=== PATIENT | male | born 1965 | race Caucasian/White ===

== ENCOUNTER 2016-11-12 19:34 | Emergency (ER) | payer OTHER ==
[2016-11-12] MEDS ORDERED: Ketorolac Tromethamine 30 MG/ML VIAL ONE (19:56)
[2016-11-12] MEDS ORDERED: Acetaminophen 500 MG TAB ONE (19:56)
[2016-11-12] MEDS ORDERED: Sodium Chloride 0.9% 1,000 ML ONE (19:58)
[2016-11-12] MEDS ORDERED: Ondansetron HCl/PF 4 MG/2 ML Vial ONE (20:01)
[2016-11-12 20:14] LABS: #Basophils 0.1 thou/uL (0.0-0.2); #Eosinphils 0.3 thou/uL (0.0-0.7); #Monocytes 0.8 thou/uL (0.11-0.59); #Neutrophils 5.4 thou/uL (1.40-6.50); %Basophils 1.2 % (0.0-1.0); %Eosinophils 3.2 % (0.0-10.0); %Lymphocytes 28.7 % (21.0-51.0); %Monocytes 8.4 % (0.0-10.0); Hematocrit 48.2 % (42.0-52.0); Macrocytosis MODERATE=16-30 cells (100X) (0-5/hpf); Mean Platelet Volume 6.9 fL (7.4-10.4); Red Blood Cell (RBC) Count 4.32 mill/uL (4.70-6.10); White Blood Cell (WBC) Count 9.2 thou/uL (4.8-10.8)
[2016-11-12 20:22] LABS: Anion Gap 14 mmol/L (10-20); BUN (Urea Nitrogen) 9 mg/dL (8.4-25.7); Calc. Creatinine Clearance 0 mL/min (70-130); Calcium 9.3 mg/dL (7.8-10.44); Carbon Dioxide 25 mmol/L (22-29); Chloride 107 mmol/L (98-107); Estimated GFR-MDRD 78
[2016-11-12] MEDS ORDERED: cefTRIAXone\\ROCEPHIN 1 GM VIAL ONE (20:46)
[2016-11-12] MEDS ORDERED: Sodium Chloride 0.9% 0 ML ONE (20:47)
[2016-11-12] MEDS ORDERED: Sodium Chloride 0.9% 100 ML ONE (20:47)
--- NOTE | 2016-11-12 22:12 | ERRECORD ---
[facility] EMERGENCY RECORD HPI FLANK PAIN (19:56 RWAG) CHIEF COMPLAINT: Patient presents for evaluation of flank pain, on the right. HISTORIAN: History provided by patient. LOCATION MALE: Symptoms are localized, most severe in the right flank, Radiation, to the groin. QUALITY: Unable to describe the quality of the pain. SEVERITY: Maximum severity of symptoms mild, Currently symptoms are mild, Maximum severity of pain rated as 10/10, Current severity of pain rated as 10/10, pt calm, NAD. TIME COURSE: Sudden onset of symptoms, 2, hours prior to arrival, There has been no change in the patient's symptoms over time. ASSOCIATED WITH MALE: Associated with fever, Measured maximum temperature 100 to 100.4 degrees, taken orally. EXACERBATED BY: Patient's condition exacerbated by nothing. RELIEVED BY: Patient's condition relieved by nothing. ROS (19:57 RWAG) CONSTITUTIONAL: Negative constitutional review of systems. EYES: Negative eye review of systems. ENT: Negative ears, nose, throat review of systems. CARDIOVASCULAR: Negative cardiovascular review of systems. RESPIRATORY: Negative respiratory review of systems. GI: Negative gastrointestinal review of systems. GENITOURINARY MALE: Negative genitourinary review of systems. MUSCULOSKELETAL: Negative musculoskeletal review of systems. SKIN: Negative skin review of systems. NEUROLOGIC: Negative neurologic review of systems. ENDOCRINE: Negative endocrine review of systems. HEMO/LYMPHATIC: Normal hematologic/lymphatic system review. ALLERGIC/IMMUNOLOGIC: Normal allergy/immunologic system review. PSYCHIATRIC: Negative psychiatric review of systems. NOTES: All systems reviewed, negative except as described above. PAST MEDICAL HISTORY (19:44 BHAS) MEDICAL HISTORY: No past medical history, Flu vaccine not up to date, Tetanus not up to date, Pneumococcal vaccine not up to date. MALE SURGICAL HISTORY: Dental Sx, Surgical history of hernia repair, Date of surgery 1997. PSYCHIATRIC HISTORY: No previous psychiatric history. SOCIAL HISTORY: Patient denies alcohol use, Patient denies drug use, Patient currently uses tobacco, smokes cigarettes, daily. KNOWN ALLERGIES No Known Drug Allergies &a-1R&a+25V*p+0X*[id number]*c202B*c15G*c2P*p-0X&a-25V&a+1R Name: Mayo White : 1965 M51 MedRec: [id number] AcctNum: [id number] Prepared: Sat Nov 12, 2016 22:41 by Interface Page 1 of 3 pMD [facility] EMERGENCY RECORD CURRENT MEDICATIONS (20:10 BHAS) None VITAL SIGNS VITAL SIGNS: BP: 191/92, Pulse: 69, Resp: 18 (Non-Labored), Temp: 100.4 (Oral), Pain: 10 (Sharp), O2 sat: 98 on Room Air, Time: 11/12/2016 19:39. (19:39 BHAS) BP: 132/89, Pulse: 69, Resp: 18 (Non-Labored), Pain: 0, O2 sat: 96 on Room Air, Time: 11/12/2016 20:18. (20:18 BHAS) Temp: 99.1 (Oral), Time: 11/12/2016 20:34. (20:34 BHAS) BP: 140/84, Pulse: 60, Resp: 18 (Non-Labored), O2 sat: 98 on Room Air, Time: 11/12/2016 21:30. (21:30 BHAS) PHYSICAL EXAM (19:58 RWAG) CONSTITUTIONAL: Patient febrile, temperature of 100.4. HEAD: Head exam normal. EYES: Eye exam normal. ENT: ENT exam normal. NECK: Neck exam normal. RESPIRATORY CHEST: Respiratory and chest exam normal. CARDIOVASCULAR: Cardiovascular assessment normal. ABDOMEN MALE: Abdominal exam normal. BACK: Back exam normal. UPPER EXTREMITY: Upper extremity exam normal. LOWER EXTREMITY: Lower extremity exam normal. NEURO: Neuro exam normal. SKIN: Skin exam normal. LYMPHATIC: Lymphatic exam normal. PSYCHIATRIC: Psychiatric exam normal. MEDICATION ADMINISTRATION SUMMARY Drug Name: cefTRIAXone injection, Dose Ordered: 1 g, Route: IV Piggy Back, Status: Given, Time: 20:55 11/12/2016, Drug Name: Normal Saline, Dose Ordered: 1 L, Route: IV Fluid Infusion, Status: Given, Time: 20:05 11/12/2016, Drug Name: Dilaudid (PF), Dose Ordered: 1 mg, Route: IV Push, Status: Given, Time: 20:05 11/12/2016, Drug Name: ondansetron HCl intravenous, Dose Ordered: 8 mg, Route: IV Push, Status: Given, Time: 20:05 11/12/2016, Drug Name: ketorolac injection, Dose Ordered: 30 mg, Route: IV Push, Status: Given, Time: 20:04 11/12/2016, Drug Name: Tylenol Extra Strength, Dose Ordered: 1 g, Route: Oral, Status: Given, Time: 20:04 11/12/2016, Detailed record available in Medication Service section. PROBLEM LIST No recorded problems &a-1R&a+25V*p+0X*[id number]*c202B*c15G*c2P*p-0X&a-25V&a+1R Name: Mayo White : 1965 M51 MedRec: [id number] AcctNum: [id number] Prepared: Sat Nov 12, 2016 22:41 by Interface Page 2 of 3 pMD [facility] EMERGENCY RECORD DIAGNOSIS (21:36 RW) FINAL: PRIMARY: Cholelithiasis, ADDITIONAL: biliary colic. PRESCRIPTION (21:35 RW) Ultram: TABLET : 50 mg : ORAL : Quantity: 2 Unit: tab(s) Route: ORAL Schedule: every 6 hours PRN Dispense: 20 Unit: tab(s) May substitute. Refills: No Refills . NOTES: No Refills. Zofran ODT: TABLET,DISINTEGRATING : 8 mg : ORAL : Quantity: 1 Unit: tab(s) Route: ORAL Schedule: every 8 hours PRN Dispense: 12 Unit: tab(s) May substitute. Refills: No Refills . NOTES: No Refills. DISPOSITION PATIENT: Disposition Type: Discharge, Disposition: *Discharge Home, Disposition Transport: Car, Condition: Improved. (21:36 [facility]) Patient left the department. (22:04 [facility]) Wright: [facility]=[place] Hurt, Favio [facility]=MD Wong, Po &a-1R&a+25V*p+0X*[id number]*c202B*c15G*c2P*p-0X&a-25V&a+1R Name: Mayo White : 1965 M51 MedRec: [id number] AcctNum: [id number] Prepared: Sat Nov 12, 2016 22:41 by Interface Page 3 of 3 pMD MTDD
--- NOTE | 2016-11-12 22:19 | PICIS ---
[facility] EMERGENCY RECORD TRIAGE (19:41 BHAS) TRIAGE NOTES: Pt states lower right abd pain with right flank pain x 2 hours. (19:41 BHAS) PATIENT: NAME: Mayo White, AGE: 51, GENDER: male, : Sun 1965, TIME OF GREET: Sat Nov 12, 2016 19:35, PREFERRED LANGUAGE: [place] Citizen, ETHNICITY: Not or , ECODE BILLING MAP: [facility] ER, SSN: [id number], Zip Code: [address], KG WEIGHT: 79.38, PHONE: , , , PERSON ID: [id number], PCP: MD Munoz Katherine. (19:41 BHAS) COMPLAINT: LOWER RT ABD PAIN; BACK PAIN. (19:41 BHAS) ADMISSION: URGENCY: 3 Urgent, ADMISSION SOURCE: Home, TRANSPORT: Walk-in, BED: ER -03. (19:41 BHAS) ASSESSMENT: Assessment: Pt c/o lower right abd pain with right lower back pain x 2 hours., Symptoms began 11/12/2016 19:44. (19:44 BHAS) PAIN: Patient complains of pain described as, aching, Location abd, back. (19:44 BHAS) TRIAGE SCREENING: Patient denies suicidal ideation, Patient denies presence of domestic violence. (19:44 BHAS) PROVIDERS: TRIAGE NURSE: Favio Hurt RN. (19:41 BHAS) VITAL SIGNS: BP 191/92, Pulse 69, Resp 18, (Non-Labored), Temp 100.4, (Oral), Pain 10, (Sharp), O2 Sat 98, on Room Air, Time 11/12/2016 19:39. (19:39 BHAS) KNOWN ALLERGIES No Known Drug Allergies CURRENT MEDICATIONS (20:10 BHAS) None VITAL SIGNS VITAL SIGNS: BP: 191/92, Pulse: 69, Resp: 18 (Non-Labored), Temp: 100.4 (Oral), Pain: 10 (Sharp), O2 sat: 98 on Room Air, Time: 11/12/2016 19:39. (19:39 BHAS) BP: 132/89, Pulse: 69, Resp: 18 (Non-Labored), Pain: 0, O2 sat: 96 on Room Air, Time: 11/12/2016 20:18. (20:18 BHAS) Temp: 99.1 (Oral), Time: 11/12/2016 20:34. (20:34 BHAS) BP: 140/84, Pulse: 60, Resp: 18 (Non-Labored), O2 sat: 98 on Room Air, Time: 11/12/2016 21:30. 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 Pt denies N/V/D. Pt denies hx of kidney stones. NAD &a-1R&a+25V*p+0X*f2171B*c202B*c15G*c2P*p-0X&a-25V&a+1R Name: Mayo White : 1965 M51 MedRec: [id number] AcctNum: [id number] Prepared: Sat Nov 12, 2016 22:48 by Interface Page 1 of 10 pMD [facility] EMERGENCY RECORD noted. PAIN: sharp pain, to the right lower quadrant, Onset of pain 11/12/2016 20:12, on a scale 0-10 patient rates pain as 10. ABDOMEN: Abdomen assessment findings include abdomen symmetrical, Abdomen soft, tender, to the right lower quadrant, Bowel sound normal, no associated nausea, no associated vomiting, no associated diarrhea, no associated constipation. GENITOURINARY MALE: Male genitourinary assessment findings include external genitalia normal. SAFETY: Side rails up, Cart/Stretcher in lowest position, Family at bedside, Call light within reach, Hospital ID band on. 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 BELONGINGS: Belongings and valuables with patient upon arrival to the Emergency Department include:, Belongings remain with patient, Valuables remain with patient. SAFETY: Side rails up, Cart/Stretcher in lowest position, Family at bedside, Call light within reach, Hospital ID band on. NURSING PROCEDURE: IV PATIENT IDENITIFIER: Patient actively involved in identification process, Patient's identity verified by patient stating name, Patient's identity verified by patient stating date. (19:50 BHAS) Patient actively involved in identification process, Patient's identity verified by patient stating name, Patient's identity verified by hospital ID bracelet. (22:00 BHAS) IV SITE 1: IV established, to the right antecubital, using a 20 gauge catheter, in one attempt, Saline lock established, Labs drawn at time of placement, labeled in the presence of the patient and sent to lab. (19:50 BHAS) FOLLOW-UP SITE 1: After procedure, sterile dressing applied. (19:50 BHAS) After procedure, 2x2 dressing applied, IV discontinued, due to patient being discharged, catheter intact. (22:00 BHAS) SAFETY: Side rails up, Cart/Stretcher in lowest position, Family at bedside, Call light within reach, Hospital ID band on. (19:50 BHAS) &a-1R&a+25V*p+0X*s9625J*c202B*c15G*c2P*p-0X&a-25V&a+1R Name: Mayo White : 1965 M51 MedRec: [id number] AcctNum: [id number] Prepared: Sat Nov 12, 2016 22:48 by Interface Page 2 of 10 pMD [facility] EMERGENCY RECORD NURSING PROCEDURE: NURSE NOTES NURSES NOTES: Notes: Pt to CT via cart at this time . (20:10 BHAS) Notes: Dr. Back stated no need for blood cultures prior to abx administration. (20:50 BHAS) Notes: Pt attempts to use restroom for UA; unable to at this time. (21:00 BHAS) Notes: Pt to be discharged at this time; awaiting ride from ER due to pt receiving pain medications. (21:40 BHAS) NURSING PROCEDURE: TRANSPORT TO TESTS (19:57 CCRI) TRANSPORT TO TESTS: Patient transported to CT scan, via wheelchair, Accompanied by x-ray it desktop support technician, Patient arrived in location at 20:08, Patient departed location at 20:16. ORDER DETAILS Order Name: Basic Metabolic Panel, Status: Active, Time: 19:51 11/12/2016, User: NORM, - Ordered for: MD Back Richard, - Entered by: MD Back Richard - Sat Nov 12, 2016 19:51, - Quantity: 1, Order Name: CBC with Differential, Status: Active, Time: 19:51 11/12/2016, User: NORM, - Ordered for: MD Back Richard, - Entered by: MD Back Richard - Sat Nov 12, 2016 19:51, - Quantity: 1, Order Name: CT Stone Protocol, Status: Active, Time: 19:51 11/12/2016, User: NORM, - Ordered for: MD Back Richard, - Entered by: MD Back Richard - Sat Nov 12, 2016 19:51, - Quantity: 1, Order Name: Culture, Urine, Status: Active, Time: 19:52 11/12/2016, User: NORM, - Ordered for: MD Back Richard, - Entered by: MD Back Richard - Sat Nov 12, 2016 19:52, - Quantity: 1, Order Name: SALINE LOCK, Status: Done, Time: 20:02 11/12/2016, User: GILDARDO, - Ordered for: MD Back Richard, - Entered by: MD Back Richard - Sat Nov 12, 2016 19:51, - Quantity: 1, Order Name: Urinalysis with Microscopic, Status: Canceled, Time: 22:08 11/12/2016, User: System, - Ordered for: MD Back Richard, - Entered by: MD Back Richard - Sat Nov 12, 2016 19:51, - Quantity: 1. MEDICATION ADMINISTRATION SUMMARY &a-1R&a+25V*p+0X*j0967X*c202B*c15G*c2P*p-0X&a-25V&a+1R Name: Mayo White : 1965 M51 MedRec: [id number] AcctNum: [id number] Prepared: Sat Nov 12, 2016 22:48 by Interface Page 3 of 10 pMD [facility] EMERGENCY RECORD Drug Name: cefTRIAXone injection, Dose Ordered: 1 g, Route: IV Piggy Back, Status: Given, Time: 20:55 11/12/2016, Drug Name: Normal Saline, Dose Ordered: 1 L, Route: IV Fluid Infusion, Status: Given, Time: 20:05 11/12/2016, Drug Name: Dilaudid (PF), Dose Ordered: 1 mg, Route: IV Push, Status: Given, Time: 20:05 11/12/2016, Drug Name: ondansetron HCl intravenous, Dose Ordered: 8 mg, Route: IV Push, Status: Given, Time: 20:05 11/12/2016, Drug Name: ketorolac injection, Dose Ordered: 30 mg, Route: IV Push, Status: Given, Time: 20:04 11/12/2016, Drug Name: Tylenol Extra Strength, Dose Ordered: 1 g, Route: Oral, Status: Given, Time: 20:04 11/12/2016, Detailed record available in Medication Service section. MEDICATION SERVICE cefTRIAXone injection: Order: cefTRIAXone injection (ceftriaxone sodium) - Dose: 1 g : IV Piggy Back Schedule: Now Ordered by: Po Back MD Entered by: Po Back MD Sat Nov 12, 2016 20:30 , Acknowledged by: Favio Hurt RN Sat Nov 12, 2016 20:35 Documented as given by: Favio Hurt RN Sat Nov 12, 2016 20:55 Patient, Medication, Dose, Route and Time verified prior to administration. Verbal order read back and verified, Amount given: 1 gram, IV SITE #1 IVPB or drip, initial infusion, Premixed, via pump tubing, on an IV pump, Verified Blood Culture collection prior to Antibiotic administration, Catheter placement confirmed via flush prior to administration, IV site without signs or symptoms of infiltration during medication administration, No swelling during administration, No drainage during administration, IV flushed after administration, Correct patient, time, route, dose and medication confirmed prior to administration, Patient advised of actions and side-effects prior to administration, Allergies confirmed and medications reviewed prior to administration, Patient tolerated procedure well, Patient in position of comfort, Side rails up, Cart in lowest position, Family at bedside. : Follow Up : No signs or symptoms of allergic reaction noted, _IV SITE #1:_, Medication infusion discontinued, on Sat Nov 12, 2016 21:40, 45 minutes, ., Total amount infused: 100ml, IV Line flushed after administration, Advised not to ambulate without assistance, Patient in position of comfort, Side rails up, Cart in lowest position, Family at bedside. (21:40 [facility]) Dilaudid (PF): Order: Dilaudid (PF) (hydromorphone HCl/preservative free) - Dose: 1 mg : IV Push Schedule: Now Ordered by: Po Back MD Entered by: Po Back MD Sat Nov 12, 2016 19:54 , Acknowledged by: Favio Hurt RN Sat Nov 12, 2016 19:55 &a-1R&a+25V*p+0X*s9772Y*c202B*c15G*c2P*p-0X&a-25V&a+1R Name: Mayo White : 1965 M51 MedRec: [id number] AcctNum: [id number] Prepared: Sat Nov 12, 2016 22:48 by Interface Page 4 of 10 pMD [facility] EMERGENCY RECORD Documented as given by: Favio Hurt RN Sat Nov 12, 2016 20:05 Patient, Medication, Dose, Route and Time verified prior to administration. Verbal order read back and verified, Amount given: 1mg, IV SITE #1 IVP, initial medication, Slowly, Awake and alert- acceptable, Connections checked prior to administration, Line traced prior to administration, Catheter placement confirmed via flush prior to administration, IV site without signs or symptoms of infiltration during medication administration, No swelling during administration, No drainage during administration, IV flushed after administration, Correct patient, time, route, dose and medication confirmed prior to administration, Patient advised of actions and side-effects prior to administration, Allergies confirmed and medications reviewed prior to administration, Patient tolerated procedure well, Patient in position of comfort, Side rails up, Cart in lowest position, Family at bedside. ketorolac injection: Order: ketorolac injection (ketorolac tromethamine) - Dose: 30 mg : IV Push Ordered by: Po Back MD Entered by: Po Back MD Sat Nov 12, 2016 19:53 , Acknowledged by: Favio Hurt RN Sat Nov 12, 2016 19:55 Documented as given by: Favio Hurt RN Sat Nov 12, 2016 20:04 Patient, Medication, Dose, Route and Time verified prior to administration. Verbal order read back and verified, Amount given: 30mg, IV SITE #1 IVP, initial medication, Slowly, Connections checked prior to administration, Line traced prior to administration, Catheter placement confirmed via flush prior to administration, IV site without signs or symptoms of infiltration during medication administration, No swelling during administration, No drainage during administration, IV flushed after administration, Correct patient, time, route, dose and medication confirmed prior to administration, Patient advised of actions and side-effects prior to administration, Allergies confirmed and medications reviewed prior to administration, Patient in position of comfort, Side rails up, Cart in lowest position, Family at bedside. Normal Saline: Order: Normal Saline (0.9 % sodium chloride) - Dose: 1 L : IV Fluid Infusion Schedule: Now Ordered by: Po Back MD Entered by: Po Back MD Sat Nov 12, 2016 19:59 , Acknowledged by: Fatoumata Castro RN Sat Nov 12, 2016 20:00 Documented as given by: Favio Hurt RN Sat Nov 12, 2016 20:05 Patient, Medication, Dose, Route and Time verified prior to administration. Verbal order read back and verified, Amount given: 1000mg, IV SITE #1 IV fluids established for hydration, IV SITE #1 1st bag hung, via primary tubing, via gravity tubing, Connections checked prior to administration, Line traced prior to administration, Catheter placement confirmed via flush prior to administration, IV site &a-1R&a+25V*p+0X*m4383O*c202B*c15G*c2P*p-0X&a-25V&a+1R Name: Mayo White : 1965 M51 MedRec: [id number] AcctNum: [id number] Prepared: Sat Nov 12, 2016 22:48 by Interface Page 5 of 10 pMD [facility] EMERGENCY RECORD without signs or symptoms of infiltration during medication administration, No swelling during administration, No drainage during administration, IV flushed after administration, Correct patient, time, route, dose and medication confirmed prior to administration, Patient advised of actions and side-effects prior to administration, Allergies confirmed and medications reviewed prior to administration, Patient tolerated procedure well, Patient in position of comfort, Side rails up, Cart in lowest position, Family at bedside. : Follow Up : No signs or symptoms of allergic reaction noted, _IV SITE #1:_, IV fluid infusion discontinued, on Sat Nov 12, 2016 21:45, Total fluid hydration time IV site 1 1 hour, 40 minutes, ., Total amount infused: 1000ml, IV Line flushed after administration, Advised not to ambulate without assistance, Patient in position of comfort, Side rails up, Cart in lowest position, Family at bedside. (21:45 [facility]) ondansetron HCl intravenous: Order: ondansetron HCl intravenous (ondansetron HCl) - Dose: 8 mg : IV Push Schedule: Now Ordered by: Po Back MD Entered by: Po Back MD Sat Nov 12, 2016 19:55 , Acknowledged by: Favio Hurt RN Sat Nov 12, 2016 19:55 Documented as given by: Favio Hurt RN Sat Nov 12, 2016 20:05 Patient, Medication, Dose, Route and Time verified prior to administration. Verbal order read back and verified, Amount given: 8mg, IV SITE #1 IVP, initial medication, Slowly, Connections checked prior to administration, Line traced prior to administration, Catheter placement confirmed via flush prior to administration, IV site without signs or symptoms of infiltration during medication administration, No swelling during administration, No drainage during administration, IV flushed after administration, Correct patient, time, route, dose and medication confirmed prior to administration, Patient advised of actions and side-effects prior to administration, Allergies confirmed and medications reviewed prior to administration, Patient tolerated procedure well, Patient in position of comfort, Side rails up, Cart in lowest position, Family at bedside. Tylenol Extra Strength: Order: Tylenol Extra Strength (acetaminophen) - Dose: 1 g : Oral Schedule: Now Ordered by: Po Back MD Entered by: Po Back MD Sat Nov 12, 2016 19:53 , Acknowledged by: Favio Hurt RN Sat Nov 12, 2016 19:55 Documented as given by: Favio Hurt RN Sat Nov 12, 2016 20:04 Patient, Medication, Dose, Route and Time verified prior to administration. Verbal order read back and verified, Amount given: 1 gram, Site: Medication administered P.O., Correct patient, time, route, dose and medication confirmed prior to administration, Patient advised of actions and side-effects prior to administration, Allergies confirmed and medications reviewed prior to administration, Patient tolerated &a-1R&a+25V*p+0X*d3483O*c202B*c15G*c2P*p-0X&a-25V&a+1R Name: Mayo White : 1965 M51 MedRec: [id number] AcctNum: [id number] Prepared: Sat Nov 12, 2016 22:48 by Interface Page 6 of 10 pMD [facility] EMERGENCY RECORD procedure well, Patient in position of comfort, Side rails up, Cart in lowest position, Family at bedside. HPI FLANK PAIN (19:56 RWAG) CHIEF COMPLAINT: Patient presents for evaluation of flank pain, on the right. HISTORIAN: History provided by patient. LOCATION MALE: Symptoms are localized, most severe in the right flank, Radiation, to the groin. QUALITY: Unable to describe the quality of the pain. SEVERITY: Maximum severity of symptoms mild, Currently symptoms are mild, Maximum severity of pain rated as 10/10, Current severity of pain rated as 10/10, pt calm, NAD. TIME COURSE: Sudden onset of symptoms, 2, hours prior to arrival, There has been no change in the patient's symptoms over time. ASSOCIATED WITH MALE: Associated with fever, Measured maximum temperature 100 to 100.4 degrees, taken orally. EXACERBATED BY: Patient's condition exacerbated by nothing. RELIEVED BY: Patient's condition relieved by nothing. ROS (19:57 RWAG) CONSTITUTIONAL: Negative constitutional review of systems. EYES: Negative eye review of systems. ENT: Negative ears, nose, throat review of systems. CARDIOVASCULAR: Negative cardiovascular review of systems. RESPIRATORY: Negative respiratory review of systems. GI: Negative gastrointestinal review of systems. GENITOURINARY MALE: Negative genitourinary review of systems. MUSCULOSKELETAL: Negative musculoskeletal review of systems. SKIN: Negative skin review of systems. NEUROLOGIC: Negative neurologic review of systems. ENDOCRINE: Negative endocrine review of systems. HEMO/LYMPHATIC: Normal hematologic/lymphatic system review. ALLERGIC/IMMUNOLOGIC: Normal allergy/immunologic system review. PSYCHIATRIC: Negative psychiatric review of systems. NOTES: All systems reviewed, negative except as described above. PAST MEDICAL HISTORY (19:44 BHAS) MEDICAL HISTORY: No past medical history, Flu vaccine not up to date, Tetanus not up to date, Pneumococcal vaccine not up to date. MALE SURGICAL HISTORY: Dental Sx, Surgical history of hernia repair, Date of surgery 1997. PSYCHIATRIC HISTORY: No previous psychiatric history. SOCIAL HISTORY: Patient denies alcohol use, Patient denies drug use, Patient currently uses tobacco, smokes cigarettes, daily. &a-1R&a+25V*p+0X*e6528M*c202B*c15G*c2P*p-0X&a-25V&a+1R Name: Mayo White : 1965 M51 MedRec: [id number] AcctNum: [id number] Prepared: Sat Nov 12, 2016 22:48 by Interface Page 7 of 10 pMD [facility] EMERGENCY RECORD PHYSICAL EXAM (19:58 RWAG) CONSTITUTIONAL: Patient febrile, temperature of 100.4. HEAD: Head exam normal. EYES: Eye exam normal. ENT: ENT exam normal. NECK: Neck exam normal. RESPIRATORY CHEST: Respiratory and chest exam normal. CARDIOVASCULAR: Cardiovascular assessment normal. ABDOMEN MALE: Abdominal exam normal. BACK: Back exam normal. UPPER EXTREMITY: Upper extremity exam normal. LOWER EXTREMITY: Lower extremity exam normal. NEURO: Neuro exam normal. SKIN: Skin exam normal. LYMPHATIC: Lymphatic exam normal. PSYCHIATRIC: Psychiatric exam normal. EVENTS TRANSFER: Triage to Emergency Emergency Room -03. (Sat Nov 12, 2016 19:41 BHAS) Removed from Emergency Emergency Room -03. (22:04 BHAS) PROBLEM LIST No recorded problems DIAGNOSIS (21:36 RWAG) FINAL: PRIMARY: Cholelithiasis, ADDITIONAL: biliary colic. DISPOSITION PATIENT: Disposition Type: Discharge, Disposition: *Discharge Home, Disposition Transport: Car, Condition: Improved. (21:36 RWAG) Patient left the department. (22:04 BHAS) INSTRUCTION (21:37 RWAG) DISCHARGE: CHOLELITHIASIS WITH COLIC PRESUMED. FOLLOWUP: MD Tammy, Alyssia, [facility], [address], [address], [place] [address], , Follow up with Primary Care Physician in 2-3 days. SPECIAL: Follow-up with your PCP. follow up with general surgeon-call for appointment. PRESCRIPTION (21:35 [facility]) Ultram: TABLET : 50 mg : ORAL : Quantity: 2 Unit: tab(s) Route: ORAL Schedule: every 6 hours PRN Dispense: 20 Unit: tab(s) May substitute. Refills: No Refills . NOTES: No Refills. Zofran ODT: TABLET,DISINTEGRATING : 8 mg : ORAL : Quantity: &a-1R&a+25V*p+0X*m0097G*c202B*c15G*c2P*p-0X&a-25V&a+1R Name: Mayo White : 1965 M51 MedRec: [id number] AcctNum: [id number] Prepared: Sat Nov 12, 2016 22:48 by Interface Page 8 of 10 pMD [facility] EMERGENCY RECORD 1 Unit: tab(s) Route: ORAL Schedule: every 8 hours PRN Dispense: 12 Unit: tab(s) May substitute. Refills: No Refills . NOTES: No Refills. IMAGING (22:05 [facility]) *DISCHARGE INSTRUCTIONS RECEIPT: Image captured from scanner. *SUPPLY CHARGE SHEET: Image captured from scanner. ADMIN (22:38 [facility]) DIGITAL SIGNATURE: MD Wong, Po. RESULTS (20:29 [facility]) LABORATORY: Basic Metabolic Panel Collection DT: Sat Nov 12, 2016 20:16, Sodium 142 mmol/L, Range (136-145), Potassium 4.2 mmol/L, Range (3.5-5.1), Chloride 107 mmol/L, Range (98-107), Carbon Dioxide 25 mmol/L, Range (22-29), Anion Gap 14 mmol/L, Range (10-20), BUN (Urea Nitrogen) 9 mg/dL, Range (8.4-25.7), Creatinine 1.00 mg/dL, Range (0.7-1.3), Estimated GFR-MDRD 78 , Reference Range for Estimated GFR: Greater than 90, mL/min/1.73 m2 NOTE: The MDRD equation has not been validated for use, with the elderly (over 70 years of age), women, patients with, serious comorbid condition or persons with extremes of body size, muscle, mass, or nutritional status. , Glucose 103 mg/dL, Range (70-105), Calcium 9.3 mg/dL, Range (7.8-10.44). CBC with Differential Collection DT: Sat Nov 12, 2016 20:15, White Blood Cell (WBC) Count 9.2 thou/uL, Range (4.8-10.8), *Red Blood Cell (RBC) Count 4.32 - L mill/uL, Range (4.70-6.10), Hemoglobin 16.3 g/dL, Range (14.0-18.0), Hematocrit 48.2 %, Range (42.0-52.0), *Mean Corpuscular Volume 112.0 - H fl, Range (80.0-94.0), *Mean Corpuscular Hemoglobin 37.7 - H pg, Range (27.0-31.0), Mean Corpuscular HGB CONC 33.9 g/dL, Range (32.0-36.0), RBC Distribution Width 14.0 %, Range (11.5-14.5), Platelet Count 229 thou/uL, Range (130-400), *Mean Platelet Volume 6.9 - L fL, Range (7.4-10.4), %Neutrophils 58.5 %, Range (42.0-75.0), %Lymphocytes 28.7 %, Range (21.0-51.0), %Monocytes 8.4 %, Range (0.0-10.0), %Eosinophils 3.2 %, Range (0.0-10.0), *%Basophils 1.2 - H %, Range (0.0-1.0), #Neutrophils 5.4 thou/uL, Range (1.40-6.50), *#Monocytes 0.8 - H thou/uL, Range (0.11-0.59), &a-1R&a+25V*p+0X*w8709M*c202B*c15G*c2P*p-0X&a-25V&a+1R Name: Mayo White : 1965 M51 MedRec: [id number] AcctNum: [id number] Prepared: Sat Nov 12, 2016 22:48 by Interface Page 9 of 10 pMD [facility] EMERGENCY RECORD #Eosinphils 0.3 thou/uL, Range (0.0-0.7), #Basophils 0.1 thou/uL, Range (0.0-0.2), Macrocytosis MODERATE=16-30 cells (100X), Range (0-5/hpf), RBC Morphology SCANNED . Wright: BHROGER=ESPINOZA Hurt, Favio CCRI=LITZY [place] RWAG=MD Wong, Po &a-1R&a+25V*p+0X*n8905Z*c202B*c15G*c2P*p-0X&a-25V&a+1R Name: Mayo White : 1965 M51 MedRec: [id number] AcctNum: [id number] Prepared: Sat Nov 12, 2016 22:48 by Interface Page 10 of 10 pMD MTDD
--- NOTE | 2016-11-12 23:27 | CT ---
CT ABDOMEN AND PELVIS WITHOUT IV CONTRAST 11/12/16 HISTORY: Right lower abdominal pain and right flank pain for two hours. FINDINGS: There is cholelithiasis with a calculus seen in the region of the fundus of the gallbladder as well as in the neck of the gallbladder. The calculus in the neck of the gallbladder measures approximatel y 7 mm. There is bibasilar atelectasis. The liver, spleen, pancreas, bilateral adrenal glands, kidneys, and urinary bladder demonstrate a gr ossly normal nonenhanced CT appearance. No renal or ureteral calculi are seen bilaterally, and there is no evidence of hydronephrosis. The appendix is visualized and normal in caliber. Vascular calcifications seen in the abdominal aorta. IMPRESSION: 1. Cholelithiasis with a calculus seen within the neck of the gallbladder. No obvious perichole cystic inflammatory changes are seen. However, if there is concern for gallbladder pathology, ultras ound examination would be more sensitive study of choice. 2. No renal or ureteral calculi are seen bilaterally. There is no hydronephrosis. 3. No CT evidence of appendicitis. POS: [facility]
== END 2016-11-12 22:00 | disposition home or self-care (01) ==
LOC: NAV ERS 19:34
DX: K80.70 Calculus of gallbladder and bile duct without cholecystitis without obstruction (principal); F17.210 Nicotine dependence, cigarettes, uncomplicated
CPT/HCPCS: 74176; 80048; 85025; 96361; 96365; 96375; J0696; J1170; J1885; J2405; J7050

== ENCOUNTER 2022-07-23 19:34 | Emergency (ER) | payer BC, OTHER ==
[~2022-07-23 19:34] MED LIST: Iopamidol 370 76% 100 ML VIAL ONE
[2022-07-23 20:14] LABS: #Basophils 0.1 thou/uL (0.0-0.2); #Eosinphils 0.1 thou/uL (0.0-0.7); #Monocytes 1.1 thou/uL (0.11-0.59); #Neutrophils 7.1 thou/uL (1.40-6.50); %Basophils 0.9 % (0.0-1.0); %Eosinophils 1.2 % (0.0-10.0); %Lymphocytes 18.9 % (21.0-51.0); %Monocytes 10.2 % (0.0-10.0); %Neutrophils 68.9 % (42.0-75.0); Hemoglobin 14.3 g/dL (14.0-18.0); Mean Corpuscular HGB CONC 31.7 g/dL (32.0-36.0); Mean Corpuscular Hemoglobin 29.8 pg (27.0-31.0); Mean Corpuscular Volume 94.2 fL (78.0-98.0); Platelet Count 243 thou/uL (130-400); RBC Distribution Width 13.1 % (11.5-14.5); Red Blood Cell (RBC) Count 4.79 mill/uL (4.70-6.10); White Blood Cell (WBC) Count 10.3 thou/uL (4.8-10.8)
[2022-07-23] MEDS ORDERED: Sodium Chloride 0.9% 1,000 ML ONE ×2 (20:19→23:13)
[2022-07-23] MEDS ORDERED: Acetaminophen 500 MG TAB ONE (20:19)
[2022-07-23] MEDS ORDERED: Morphine 4 MG/ML VIAL ONE (20:19)
[2022-07-23] MEDS ORDERED: Ondansetron PF 4 MG/2 ML Vial ONE (20:19)
[2022-07-23 20:33] LABS: ALT (SGPT) 23 U/L (8-55); AST (SGOT) 18 U/L (5-34); Albumin 4.3 g/dL (3.5-5.0); Alkaline Phosphatase 92 U/L (40-110); Anion Gap 15 mmol/L (10-20); BUN (Urea Nitrogen) 11 mg/dL (8.4-25.7); Bilirubin, Total 0.7 mg/dL (0.2-1.2); Calc. Creatinine Clearance 0 mL/min (70-130); Calcium 9.6 mg/dL (7.8-10.44); Carbon Dioxide 26 mmol/L (22-29); Chloride 103 mmol/L (98-107); Estimated GFR 74; Globulin 3.5 g/dL (2.4-3.5); Glucose 98 mg/dL (70-105); Potassium 3.9 mmol/L (3.5-5.1); Protein, Total 7.8 g/dL (6.0-8.3); Sodium 140 mmol/L (136-145)
[2022-07-23] MEDS ORDERED: Piperacillin/Tazobactam 3.375 GM VIAL ONE (23:13)
[2022-07-23] MEDS ORDERED: Sodium Chloride 0.9% 100 ML ONE (23:13)
[2022-07-23] MEDS ORDERED: Fentanyl 100 MCG/2 ML VIAL ONE (23:14)
[2022-07-23 23:42] LABS: Bilirubin Negative (Negative); Blood, Urine Trace (Negative); Clarity Clear (Clear); Glucose, Urine (Dipstick) Negative (Negative); Ketone, Urine Negative (Negative); Leukocyte Negative (Negative); Nitrite Negative (Negative); Protein, Urine (Dipstick) Negative (Neg-Trace)
[2022-07-23 23:49] LABS: Bacteria/HPF None Seen HPF (None Seen); Squamous Epithelial 0-3 HPF (0-3); WBC/HPF 0-3 HPF (0-3)
== END 2022-07-24 00:14 | disposition short-term general hospital (02) ==
LOC: NAV ERS 19:34
DX: K81.0 Acute cholecystitis (principal); I10 Essential (primary) hypertension; E78.5 Hyperlipidemia, unspecified; M10.9 Gout, unspecified; Z87.891 Personal history of nicotine dependence; Z79.82 Long term (current) use of aspirin; Z79.899 Other long term (current) drug therapy
CPT/HCPCS: 71045; 74177; 80053; 81003; 81015; 83605; 85025; 87040; 96365; 96374; 96375; J2270; J2405; J2543; J3010; J3490; J7050; Q9967

== ENCOUNTER 2025-07-18 18:04 | Emergency (ER) | payer BC | END 2025-07-18 18:35 | disposition home or self-care (01) | LOC: NAV ERS 18:04 | DX: M54.2 Cervicalgia (principal); E11.9 Type 2 diabetes mellitus without complications; I10 Essential (primary) hypertension; Z87.891 Personal history of nicotine dependence ==